=== PATIENT | female | born 1995 | race Caucasian/White ===

== ENCOUNTER → 2023-09-22 11:18 | Outpatient (REF) | payer OTHER, SELFPAY | LOC: RAD 11:18 | PROVIDERS: ATTENDING PHYSICIAN Family Medicine | DX: M25.532 Pain in left wrist (principal); M25.531 Pain in right wrist; M79.644 Pain in right finger(s); M79.645 Pain in left finger(s) | CPT/HCPCS: 73110; 73130 ==

== ENCOUNTER 2024-04-23 14:06 | Outpatient (RCR) | payer OTHER, SELFPAY | END 2024-04-23 23:59 | disposition home or self-care (01) | LOC: RPT 14:06 | PROVIDERS: ATTENDING PHYSICIAN Physician Assistant | DX: M25.551 Pain in right hip (principal); M25.552 Pain in left hip; Z73.6 Limitation of activities due to disability | CPT/HCPCS: 97110; 97112; 97162; 97530 ==

== ENCOUNTER 2024-05-08 15:04 | Outpatient (RCR) | payer OTHER, SELFPAY | END 2024-05-08 23:59 | disposition home or self-care (01) | LOC: RPT 15:04 | PROVIDERS: ATTENDING PHYSICIAN Physician Assistant | DX: M25.551 Pain in right hip (principal); M25.552 Pain in left hip; Z73.6 Limitation of activities due to disability | CPT/HCPCS: 97110; 97112 ==

== ENCOUNTER 2024-08-08 11:18 | Emergency (ER) | payer OTHER, SELFPAY ==
[2024-08-08 11:24] VITALS: BP 135/96
[2024-08-08 11:55] LABS: HCG, Serum Qualitative Screen Negative
[2024-08-08 11:57] LABS: % Basophils 0.4 % (0-2); % Eosinophils 0.7 % (0-6); % Immature Granulocytes 0.1 % (0-0.5); % Lymphocytes 36.6 % (20.5-51.1); % Neutrophils 49.2 % (42.2-75.2); Absolute Eosinophils 0.1 10^3/uL (0-0.7); Absolute Lymphocytes 2.6 10^3/uL (1.2-3.4); Absolute Monocytes 0.9 10^3/uL (0.1-0.6); Absolute Neutrophils 3.5 10^3/uL (1.4-6.5); Hemoglobin 12.7 g/dL (12.0-16.0); Mean Corp Hgb Conc. 32.6 g/dL (33.0-37.0); Mean Corpuscular Hgb 26.8 pg (27.0-31.0); Mean Corpuscular Volume 82.5 fL (81.0-99.0); Mean Platelet Volume 10.4 fL (7.4-10.4); Nucleated Red Blood Cells % 0 %; Platelet Count 224 10^3/uL (130-400); Red Blood Cell Count 4.73 10^6/uL (4.20-5.40); Red Cell Dist. Width 13.8 % (11.5-14.5); White Blood Cell Count 7.1 10^3/uL (4.8-10.8)
[2024-08-08 12:00] LABS: ALT (SGPT) 25 U/L (0-35); AST (SGOT) 26 U/L (14-36); Alkaline Phosphatase 64 U/L (38-126); Blood Urea Nitrogen 13 mg/dl (7-17); Calcium 9.6 mg/dl (8.4-10.2); Carbon Dioxide 26 mmol/L (22-30); Chloride 107 mmol/L (98-107); Glucose 88 mg/dl (70-99); Potassium 3.7 mmol/L (3.5-5.1); Sodium 141 mmol/L (135-145); Total Bilirubin 0.6 mg/dl (0.2-1.3); eGFR > 60.00
[2024-08-08 12:11] LABS: Troponin I < 0.012 ng/ml
[2024-08-08 12:31] LABS: TSH 0.99 uIU/ml (0.47-4.68)
[2024-08-08 13:02] VITALS: BMI 28.2
--- NOTE | 2024-08-08 13:23 | ED.GENMED ---
History of Present Illness
General
Chief Complaint: Chest Pain
Source: patient
Exam Limitations: none
Time Seen by Provider: 08/08/24 12:58
History of Present Illness
History of Present Illness:
28-year-old female presents complaining of intermittent left-sided chest discomfort that occasionally radiates to the arm with associated elevated heart rate of the past 2 to 3 weeks. She is healthy otherwise and does not take any medications. She
has 2 young children. No recent travel or surgery. No leg swelling or calf pain. No oral contraceptives. No fever or cough. No other complaints at this time
Past History
Past History
ED Past Medical History: Hyperthyroidism
Social History
Tobacco: Smoker
Alcohol: None
Personal: Partner (Lives with her boyfriend)
Living: with roommate (She will stay with her mother over the weekend. Her mother is at the bedside)
Employment: Employed (Housekeeping)
Phy Exam
Physical Exam
Physical Exam:
General: Well-appearing female no acute respiratory distress
HEENT: Normocephalic atraumatic
Heart: Regular rate and rhythm
Lungs: Clear no wheeze
Extremities no cyanosis edema or calf tenderness
Scores
Heart Score for Chest Pain Patients
STEMI patient?: No
History: Slightly or Non-Suspicious
ECG: Normal
Age: </= 45 years
Risk Factors: No Risk Factors
Troponin: </= Normal Limit
Heart Score for Chest Pain Patients: 0
Heart Score Risk: 2.5% MACE over next 6 weeks
Course
Orders/Labs/Results
Orders:
Orders
08/08/24 11:19
Electrocardiogram (*1) Urgent
Reason for Study: Chest Pain
EKG- Treatment ONCE
08/08/24 11:27
Test Result ONCE
08/08/24 11:30
Complete Blood Count/With Diff Urgent
Comprehensive Metabolic Panel Urgent
HCG, Serum Qualitative Screen Urgent
TSH Urgent
Troponin I Urgent
08/08/24 13:23
D-Dimer Routine
PTT Routine
Prothrombin Time Routine
08/08/24 14:06
CR Chest - 2 Views Urgent
Comment:
Reason For Exam: chest pain
Abnormal Lab Results
08/08/24
11:30
MCH 26.8 L pg
(27.0-31.0)
MCHC 32.6 L g/dL
(33.0-37.0)
Absolute Monos (auto) 0.9 H 10^3/uL
(0.1-0.6)
Monocytes % 13.0 H %
(1.7-9.3)
08/08/24 11:30
08/08/24 11:30
Vital Signs
Initial and Last Documented VS:
Initial Vital Signs
Temp Pulse Resp BP Pulse Ox
98 F 96 16 135/96 100
08/08/24 11:24 08/08/24 11:24 08/08/24 11:24 08/08/24 11:24 08/08/24 11:24
Last Documented Vital Signs
Temp Pulse Resp BP Pulse Ox
98 F 89 18 135/96 100
08/08/24 11:24 08/08/24 13:02 08/08/24 13:11 08/08/24 11:24 08/08/24 11:24
MDM/Problems Addressed
Differential Diagnosis Includes:
Chest pain palpitations. Consider arrhythmia electrolyte abnormality PE anxiety ACS EKG shows sinus tachycardia however she is not tachycardic on my exam
. Heart rate was in the 80s on the monitor. Will check labs including TSH troponin and D-dimer given her tachycardia and slightly pleuritic discomfort.
*Critical Care Note
Total Time (30-74mins, 75-104mins- exclusive of procedures): Not Applicable
Update Note
Update Note:
D-dimer negative troponin undetectable chest x-ray clear heart rate has been normal since being on the monitor. Suspect underlying palpitations perhaps exacerbated by recent life stressors. No indication for admission. Stable for discharge
ED Attending Note
-
Portions of this chart may have been created with voice recognition software.� Occasional wrong word or��sound alike� substitutions may have occurred due to the inherent limitations of voice recognition software.
Discharge Plan
Departure
Patient Disposition: Home (Routine Discharge)
Date of Disposition: 08/08/24
Time of Disposition: 14:41
Patient with high blood pressure during this ER visit?: No
Discharge Problem:
Chest pain
Instructions: Chest Pain PCP Follow Up
Referrals:
UNKNOWN - PT DOES,NOT KNOW [Family Provider]
Activity Restrictions/Additional Instructions:
Rest. Ensure plenty of hydration. Return if worse otherwise follow-up with your doctor
Interventions
Interventions:
*Risk Screen - Suicide Last Done: 08/08/24 11:26
*General Assessment Last Done: 08/08/24 13:24
*Neglect/Abuse Screening Last Done: 08/08/24 11:26
*ED- Fall Risk Assessment Last Done: 08/08/24 13:24
*ED COVID-19 Vaccine History Last Done: 08/08/24 13:23
ED- Cardiac Assessment Last Done: 08/08/24 13:03
Discharge Date and Time
Print Language: MONTSERRATIAN
[2024-08-08 13:44] LABS: INR 0.99; PT 13.6 Sec (11.4-14.6)
[2024-08-08 13:45] LABS: APTT 27.2 Sec (23.4-35.0)
[2024-08-08 14:04] LABS: D-Dimer < 0.27 ug/mlFEU (0.00-0.50)
== END 2024-08-08 15:43 | disposition home or self-care (01) ==
LOC: EMR 11:18
PROVIDERS: Emergency Medicine; EMERGENCY PHYSICIAN Emergency Medicine
DX: R07.89 Other chest pain (principal); E05.90 Thyrotoxicosis, unspecified without thyrotoxic crisis or storm; F17.200 Nicotine dependence, unspecified, uncomplicated
CPT/HCPCS: 99283; 71046; 80053; 84443; 84484; 84703; 85025; 85379; 85610; 85730; 93005

== ENCOUNTER → 2024-08-20 12:55 | Outpatient (REF) | payer OTHER, SELFPAY | LOC: RCS 12:55 | PROVIDERS: ATTENDING PHYSICIAN Internal Medicine Cardiovascular Disease; FAMILY PHYSICIAN Nurse Practitioner Family | DX: R06.02 Shortness of breath (principal) | CPT/HCPCS: 93306 ==

== ENCOUNTER → 2024-11-14 14:17 | Outpatient (REF) | payer OTHER, SELFPAY | LOC: WDC 14:17 | PROVIDERS: ATTENDING PHYSICIAN Obstetrics & Gynecology | DX: N64.4 Mastodynia (principal) | CPT/HCPCS: 76642 ==